=== PATIENT | male | born 1975 | race African-American/Black ===

== ENCOUNTER → 2019-04-02 11:45 | Outpatient (CLI) | payer OTHER, SELFPAY ==
--- NOTE | 2019-04-02 | DI.MRI.S_ITS ---
PROCEDURE: MR KNEE RT WO CON INDICATIONS: PAIN IN UNSPECIFIED KNEE TECHNIQUE: Noncontrast sagittal PD fast spin echo and T2 fast spin echo with fat saturation, sagittal 3-D FLASH with fat saturation; coronal T1 spin echo and PD fast spin echo with fat saturation, and axial PD fast spin echo with fat saturation through the knee. COMPARISON: None. FINDINGS: Image quality: Excellent. Menisci: The medial and lateral menisci demonstrate normal morphology and internal signal. The meniscal root ligaments appear intact. Cruciate ligaments: The anterior and posterior cruciate ligaments appear intact. Medial structures: The medial collateral ligament appears intact. The posterior oblique ligament, semimembranosus tendon insertions, oblique popliteal ligament, and meniscocapsular junction appear intact. Visualized portions of the pes anserinus tendons appear normal. No abnormal bursal fluid. Lateral structures: The lateral collateral ligament, long and short heads of the biceps femoris tendon appear intact. The popliteus tendon appears normal; the popliteofibular ligament appears intact. The posterosuperior and anteroinferior popliteomeniscal fascicles appear intact. The arcuate and fabellofibular ligaments appear intact, on either side of the lateral inferior geniculate artery. Iliotibial band appears normal. Anterior structures: There is a partial, low grade tear of the patellar tendon at the patellar attachment. The patellar tendon is markedly thickened with increased internal signal compatible with severe tendinosis. Reactive edema is noted in Hoffa's fat pad adjacent to the severe patellar tendinosis. The quadriceps tendon is intact. Patellar alignment is normal. No femoral trochlear dysplasia or ventral trochlear prominence. No edema in the infrapatellar fat pad. Bones and cartilage: No bone marrow contusions or fractures. The cartilage of the medial and lateral femorotibial compartments, as well as the patellofemoral compartment, appears normal in thickness. Joint space: There is physiologic knee joint fluid. No Claire's cyst. Normal appearing synovial plicae are incidentally noted. IMPRESSION: Low-grade, partial tear of the patellar tendon at the patellar attachment with severe patellar tendinopathy. Dictated by: Emily Stanley MD, PhD on 04/02/2019 at 12:57 Approved by: Emily Stanley MD, PhD on 04/04/2019 at 10:19
== END ==
PROVIDERS: PCP Family Medicine; Referring Provider Registered Nurse Diabetes Educator; Visit Provider Registered Nurse Diabetes Educator
DX: M25.561 Pain in right knee (principal); S76.111A Strain of right quadriceps muscle, fascia and tendon, initial encounter
CPT/HCPCS: 73721

== ENCOUNTER 2023-08-19 15:38 | Emergency (ER) | payer OTHER, SELFPAY ==
[2023-08-19 15:47] VITALS: BP 123/80; PULSE 85; RESP 16; TEMP 36.7; O2SAT 100; BMI 26.6
--- NOTE | 2023-08-19 17:37 | ED.LOWEXIN ---
HPI - Extremity Injury (Lower) <Estefany Gibbs PA-C - Last Filed: 08/19/23 17:40> General Chief Complaint: Extremity Injury, Lower Stated Complaint: Foot PX, thinks is achilles tendon Time Seen by Provider: 08/19/23 17:07 Source: patient and family Mode of arrival: Ambulatory History of Present Illness HPI Narrative: Patient was playing basketball this afternoon when he felt a sudden pop and pain in his right heel. This has not happened before. He took Tylenol after but no medications or therapy. He reports no significant comes aside from high cholesterol previous orthopedic injuries. Related Data Home Medications Medication Instructions Recorded Confirmed rosuvastatin 10 mg tablet 10 mg PO DAILY 04/14/22 04/14/22 Allergies Allergy/AdvReac Type Severity Reaction Status Date / Time No Known Drug Allergies Allergy Verified 08/19/23 15:47 Review of Systems <Estefany Gibbs PA-C - Last Filed: 08/19/23 17:40> Review of Systems ROS Unobtainable: All systems reviewed & are unremarkable except as noted in HPI and below Patient History <Estefany Gibbs PA-C - Last Filed: 08/19/23 17:40> Medical History Hypercholesteremia Eczema Surgical History Hx of tonsillectomy Family History Father Cancer Mother Cancer Social History Smoking Status: Never smoker Smoking Status: Never smoker alcohol intake frequency: holidays/special occasions only Substance Use Type: does not use Exam <Estefany Gibbs PA-C - Last Filed: 08/19/23 17:40> Narrative Exam Narrative: GENERAL: 48 year old patient appears stated age. Well-developed patient, in no acute distress. NEURO: AOx3. HEAD: Atraumatic. Normocephalic. EYES: Pupils equal round and reactive. Extraocular motions intact. No scleral icterus. No injection or drainage. ENT: Nose without bleeding or purulent drainage. Throat without erythema, tonsillar hypertrophy or exudate. Airway patent. RESPIRATORY: No distress. EXTREMITIES: Trace edema over the base of the Achilles tendon tender to palpation. Positive Golden test for Achilles rupture. SKIN: No rash or erythema of visible areas Initial Vital Signs Initial Vital Signs: Vital Signs Temperature 98.0 F 08/19/23 15:47 Pulse Rate 85 08/19/23 15:47 Respiratory Rate 16 08/19/23 15:47 Blood Pressure 123/80 08/19/23 15:47 Pulse Oximetry 100 08/19/23 15:47 Oxygen Delivery Method Room Air 08/19/23 15:47 <Ambreen Holder DO - Last Filed: 08/20/23 18:54> Initial Vital Signs Initial Vital Signs: Vital Signs Temperature 98.0 F 08/19/23 15:47 Pulse Rate 85 08/19/23 15:47 Respiratory Rate 16 08/19/23 15:47 Blood Pressure 123/80 08/19/23 15:47 Pulse Oximetry 100 08/19/23 15:47 Oxygen Delivery Method Room Air 08/19/23 15:47 Course <Estefany Gibbs PA-C - Last Filed: 08/19/23 17:40> Vital Signs Vital signs: Vital Signs - 8 hr 08/19/23 15:47 Temperature 98.0 F Pulse Rate 85 Respiratory Rate 16 Blood Pressure 123/80 Pulse Oximetry 100 Oxygen Delivery Method Room Air <Ambreen Holder DO - Last Filed: 08/20/23 18:54> Vital Signs Vital signs: Vital Signs - 8 hr 08/19/23 15:47 Temperature 98.0 F Pulse Rate 85 Respiratory Rate 16 Blood Pressure 123/80 Pulse Oximetry 100 Oxygen Delivery Method Room Air MDM - Extremity Injury (Lower) <Estefany Gibbs PA-C - Last Filed: 08/19/23 17:40> MDM Narrative Medical decision making narrative: Patient is a 48-year-old male who sustained a likely right Achilles tendon rupture while playing basketball today. Golden test is positive. Patient placed in a walking boot with his heel elevated on 4x4s, nonweightbearing with crutches. Referred to orthopedics for follow-up assessment. Advised to take ibuprofen 600 mg Q 6-8 hours for pain. Discharge Plan Departure Patient Disposition: Home Clinical Impression: Achilles rupture, right Qualifiers: Encounter type: initial encounter Qualified Code(s): S86.011A - Strain of right Achilles tendon, initial encounter Instructions: DI for Achilles Tendon Rupture Activity Restrictions/Additional Instructions: You have a suspected right Achilles tendon rupture. The treatment for this is non weight-bearing. We will give you a walking boot to hold your foot in position and crutches. You can take this off when you are resting at home. You can use ibuprofen 600 mg every 6-8 hours for pain. You can apply ice to decrease pain and swelling. You can call the orthopedic office on Monday and schedule follow up appointment for further evaluation and instructions. Prescriptions: No Action rosuvastatin 10 mg tablet 10 mg PO DAILY Referrals: [facility] [Provider Group] Caleb George MD [Primary Care Provider] - Stand Alone Forms: Patient Portal/API ED Sign-out <Ambreen Holder DO - Last Filed: 08/20/23 18:54> Cosign ED Attending Eleanor Attestation: I was immediately available in the department for consultation.
== END 2023-08-19 17:37 | disposition home or self-care (01) ==
PROVIDERS: Emergency Provider Physician Assistant; PCP Family Medicine
DX: S86.011A Strain of right Achilles tendon, initial encounter (principal); X58.XXXA Exposure to other specified factors, initial encounter; Y93.67 Activity, basketball
CPT/HCPCS: 29580; 99282

== ENCOUNTER → 2023-09-30 07:23 | Outpatient (CLI) | payer OTHER, SELFPAY ==
--- NOTE | 2023-09-30 | DI.MRI.S_ITS ---
PROCEDURE: MR ANKLE RT WO CON INDICATIONS: PAIN JOINT RIGHT ANKLE,R/O RT ACHILLES RUPTURE TECHNIQUE: Noncontrast sagittal T1 spin echo and T2 fast spin echo with fat saturation, axial proton density fast spin echo and T2 fast spin echo with fat saturation, coronal T1 spin echo and T2 fast spin echo with fat saturation through the ankle/hindfoot. COMPARISON: None. FINDINGS: Image quality: Excellent Tendons: The flexors, and the extensor tendons are unremarkable. The peroneal tendons are unremarkable. Severe tendinosis of the Achilles tendon with full-thickness tear, approximately 6.0 cm proximal to the calcaneal insertion. There is a tendon gap of 4.1 cm. Ligaments: The anterior and the posterior tibiofibular ligament are intact. The anterior talofibular ligament is not visualized, likely fully torn. The posterior talofibular ligament is intact. The calcaneofibular ligament is intact. The deep portion of the deltoid ligament is unremarkable. Sinus tarsi: No fibrosis Plantar fascia: Unremarkable Muscles: Normal in signal. Bones: Mild marrow edema in the lateral malleolus, nonspecific and may represent mild marrow contusion. Alternatively, this may be artifactual. No acute fracture. No significant tibiotalar effusion. IMPRESSION: 1. Severe tendinosis of the Achilles tendon with full-thickness tear. 2. Full-thickness tear of the anterior talofibular ligament. 3. Mild marrow edema versus artifact in the lateral malleolus. Dictated by: Cony Watts M.D. on 10/02/2023 at 10:23 Approved by: Cony Watts M.D. on 10/02/2023 at 10:31
== END ==
LOC: MRI 07:24
PROVIDERS: PCP Family Medicine; Referring Provider Orthopaedic Surgery; Visit Provider Orthopaedic Surgery
DX: S86.011A Strain of right Achilles tendon, initial encounter (principal); S93.491A Sprain of other ligament of right ankle, initial encounter; M25.571 Pain in right ankle and joints of right foot
CPT/HCPCS: 73721

== ENCOUNTER 2023-10-25 09:09 | Day surgery (SDC) | payer OTHER, SELFPAY ==
[2023-10-20 17:00] VITALS: BMI 26.6
[2023-10-25] VITALS (10 sets, daily range): BP systolic 117–148; BP diastolic 82–94; PULSE 62–81; RESP 14–20; TEMP 36.2–36.6; O2SAT 97–100; BMI 26.6
[2023-10-25] MEDS: ACETAMINOPHEN 325 MG TABLET 975 MG PO (09:50)
[2023-10-25] MEDS: LACTATED RINGERS 1,000 ML 42 ML IV (09:51)
--- NOTE | 2023-10-25 10:04 | SUR.OPER ---
Prone on padded OR bed, head in foam head support, gel chest rolls, gel pad under knees, pillow under lower legs, toes free of pressure, arms secured on padded arm boards at <90 degrees abduction. Safety belt at thigh.
--- NOTE | 2023-10-25 10:10 | PM.PREOP ---
Pre-operative Note Interval Note History & Physical reviewed/Exam performed by Physician: Yes Changes to H&P: No
[2023-10-25] MEDS: CEFAZOLIN 2 GM/100 ML PREMIX 100 ML IV (10:20)
[2023-10-25] MEDS: BUPIVACAINE 0.25% (PF) 30 ML, EPINEPHrine 0.15 MG INJ (10:46)
--- NOTE | 2023-10-25 12:00 | P.OP_ITS ---
Operative Date/Time/Diagnoses Date of procedure: 10/25/23 Time of procedure: 11:00 Pre-op diagnosis: Rupture right Achilles tendon subacute Post-op diagnosis: same Procedure & Clinicians Procedure: Repair Achilles tendon, secondary for subacute/chronic rupture greater than 6-week-old CPT code 67702, right Same procedure as scheduled: Yes Indications: The patient is a 48-year-old male with a right Achilles tendon rupture playing basketball on 08/20/2019 for more than 2-1/2 months ago. Was not seen by an orthopedic surgeon until greater than 4 weeks later. Was diagnosed with a midsubstance Achilles rupture with significant tendinosis. He had chronic weakness no plantar flexion with Golden. He was counseled on risks and benefits of surgery and the goals of restoring length and power. He did not have any hard contraindications to Achilles repair and was indicated for an Achilles tendon repair, secondary for his subacute rupture. We discussed possibilities of requiring a gastroc recession or a flexor hallucis longus transfer. The patient is otherwise an active male, frequent food selector. Was indicated for Achilles tendon reconstruction. The risks and benefits of the procedure have been discussed with the patient and given the opportunity to ask questions. The risks of surgery include but are not limited to infection, malunion, nonunion, persistence of pain, damage to nerves and blood vessels, posttraumatic arthritis, DVT, PE, cardiopulmonary complications and . The patient expressed a thorough understanding of the risks and benefits of surgery and has elected to proceed. Consent was signed. Surgeon: Kaela Montalvo Click Yes if Unassisted: Yes Anesthesia Type: General and Local Operative Notes Findings: Complete midsubstance Achilles tendon rupture divot at midsubstance approximately 5 cm above the calcaneal insertion. Upon incision and exposure Achilles tendon with copious scarred tendon healed in a lengthened position. Proximally 2 cm section of the scar tissue was excised. This brought us back to good quality proximal Achilles tendon tissue. Plantaris was cut and incorporated into the repair. Proximal tendon was mobilized using a malleable retractor. The tendon was brought distal effectively shortening the Achilles for the repair. Closure Type: primary Specimen(s): none sent Prosthetic devices, grafts, tissues, transplants, or devices: Arthrex midsubstance SpeedBridge kit. 2. FiberWire was used proximally for a Krackow suture and this was passed distally through the distal stump and then secured into the heel with 2 of the 4.75 swivel locks Estimated Blood Loss (mL): 10 Blood products transfused: none Tourniquet time (min): 44 Procedure in detail: Patient was seen in the preoperative area the site of surgery was marked informed consent confirmed. This was the right leg. The patient was then brought back to the operating room by the anesthesia team. The patient was positioned supine. General anesthesia was administered. Patient was then flipped prone on the operative table. All bony prominences well padded. A well-padded thigh tourniquet was applied. The right lower extremity was then prepped and draped in the standard sterile fashion. A formal time-out procedure was performed confirming the patient's side and site of surgery administration of appropriate preoperative antibiotic. All were in agreement. Attention was turned to the posterior right leg the Esmarch tourniquet was used to exsanguinate and the tourniquet was raised on the thigh to 250 mm of mercury. The area of palpable gap in the midsubstance rupture was palpated and this was marked out 5-6 cm above the calcaneal insertion of the Achilles. Additionally demarcations 4-16 cm above the calcaneal insertion were marked out on the skin in case of the need for a gastroc recession. The incision was then made between 4 and 7 cm above the Achilles insertion just medial to the Achilles taken down through the skin and subcutaneous tissue. Paratenon was then opened over the Achilles tendon more midline at the proximal distal aspect of the incision. This was in poor condition in the middle at the site of the rupture. The paratenon was carefully elevated. The midsubstance rupture and existing scar was then exposed. 2 cm section of the scar was excised. This was done to bring us back to good quality proximal Achilles tendon tissue. The plantaris was cut for later incorporation into the repair. A deep fasciotomy was completed to allow blood flow and reduce tension off of the repair. Then a malleable retractor was inserted deep superficial and medial and lateral to the proximal Achilles tendon stump to help mobilize it and an Allis clamp used to mobilize the tissue once the mail to mobilize the proximal segment to meet the distal stump this was deemed adequate and at this point with the foot and 20-30 degrees of plantar flexion I was able to bring the proximal to distal stumps together and decided that we would not require a gastroc recession. A 2. FiberWire suture was passed through the lateral aspect of the proximal Achilles tendon stump in a Krackow fashion and a 2nd 2. FiberWire was done the same on the medial half of the proximal Achilles tendon stump. Next the banana Lasso suture Passer was passed from stab incisions on the medial and lateral sides of the heel up through the distal stump and into the wound where the proximal stump sutures were then brought down through medial and lateral calcaneus stab incisions. Next the drill for the swivel locks was drilled into the medial and lateral calcaneus incision holes and then tapped in the standard fashion. The sutures from the proximal stump were then loaded onto the swivel locks the foot was brought into 25? of plantar flexion approximating the tendon stumps and the SwiveLock anchors were placed into the calcaneus holding this tension. This was completed laterally and then medially. This provided an excellent repair and was checked for strength. Care was taken to make sure that the anchors were countersunk within the bone at least 2 mm. Next the Achilles tendon repair was oversewn with 0 Vicryl suture. The leg was brought up into knee flexion and the Golden test was performed demonstrating good active plantar flexion. The ankle was taken through a range of motion without gapping. The tourniquet was released hemostasis was achieved. Paratenon was closed with 4-0 Monocryl subcutaneous with 4-0 Monocryl and the skin with 3-0 nylon suture. 20 cc of 0.25% Marcaine with epinephrine were injected for local anesthesia. An Arthrex jumpstart dressing was applied followed by a posterior well-padded splint in resting plantar flexion approximately 20?. The patient was awoken from anesthesia and taken to recovery room in good condition there were no immediate complications from this procedure. Counts were correct. Complications: none Post-operative Condition: stable Disposition: PACU Plan for aftercare: Nonweightbearing x2 weeks or touchdown for balance. At 1st postop appointment dressing will be checked. Sutures will stay in place 12-24 days. Once incision healing nicely we will go back into a boot with 2 (large black) heel lifts --if still tension with the can add a foam or felt lift above. And start the Achilles tendon protocol with progressive weight-bearing and Achilles tendon motion protocol. Aspirin 325 daily for DVT prophylaxis. A start physical therapy 3 weeks after surgery. Physical therapy prescription previously sent
[2023-10-25] MEDS: hydrOXYzine 50 MG/ML INJ 25 MG IM (12:11)
[2023-10-25] MEDS: OXYCODONE IR 5 MG TABLET PO ×2 (12:12→12:44)
[2023-10-25] MEDS: MEPERIDINE 50 MG/ML INJ 12.5 MG IV (12:47)
== END 2023-10-25 13:30 | disposition home or self-care (01) ==
PROVIDERS: PCP Family Medicine; Referring Provider Orthopaedic Surgery Foot and Ankle Surgery; Visit Provider Orthopaedic Surgery Foot and Ankle Surgery
PROC: (CPT 27650; principal; 2023-10-25 11:00)
DX: S86.011A Strain of right Achilles tendon, initial encounter (principal); Y93.67 Activity, basketball
CPT/HCPCS: 27654; C1713; J0171; J0330; J0690; J1100; J1170; J2175; J2405; J2704; J3410